=== PATIENT | female | born 1965 | race Caucasian/White ===

== ENCOUNTER → 2022-02-17 | Day surgery (SDC) | payer BC ==
[~2022-02-17] MED LIST: Ketamine 200 MG/20 ML MDV ONE; Lactated Ringers 1,000 ML IV SCH; Midazolam 1 MG/ML 2 ML SDV ONE; Propofol 200 MG/20 ML SDV ONE; fentaNYL 50 MCG/ML SDV ONE
== END ==
LOC: CC.SDS 07:58
PROVIDERS: ATTEND Surgery
DX: Z12.11 Encounter for screening for malignant neoplasm of colon (principal); M79.7 Fibromyalgia; E78.5 Hyperlipidemia, unspecified; I10 Essential (primary) hypertension; E55.9 Vitamin D deficiency, unspecified; E66.01 Morbid (severe) obesity due to excess calories; Z88.5 Allergy status to narcotic agent; Z88.2 Allergy status to sulfonamides; Z79.899 Other long term (current) drug therapy; Z98.890 Other specified postprocedural states; Z68.43 Body mass index [BMI] 50.0-59.9, adult
CPT/HCPCS: J2250; J2704; J3010; J7120

== ENCOUNTER → 2022-06-23 | Day surgery (SDC) | payer BC ==
[~2022-06-23] MED LIST changes: +Acetaminophen/HYDROcodone 325-5 MG Tab PO PRN; +Dexamethasone 4 MG/ML SDV ONE; +Glycopyrrolate 0.2 MG/ML SDV ONE; -Ketamine 200 MG/20 ML MDV ONE; +Lidocaine 2% 20 ML MDV ONE; +Metoprolol Tartrate 5 MG/5 ML SDV ONE; +Morphine 4 MG/ML VIAL IV PRN; +Morphine 4 MG/ML VIAL ONE; +Neostigmine Methylsulfate 10 MG/10 ML MDV ONE; +Ondansetron 4 MG/2 ML SDV ONE; +Rocuronium 50 MG/5 ML Vial ONE; +Sodium Chloride 0.9% 10 ML Syringe FLUSH PRN; +Succinylcholine 200 MG/10 ML MDV ONE; +ceFAZolin 2 GM Vial IVPUSH ONE
[2022-06-23] MEDS: Acetaminophen 325 MG Tab PO PRN ×2 (16:33→20:41)
[2022-06-24] MEDS: Acetaminophen 325 MG Tab PO PRN (04:54)
== END | disposition home or self-care (01) ==
LOC: CC.SDS 08:57
PROVIDERS: ATTEND Surgery
DX: K81.1 Chronic cholecystitis (principal); K76.0 Fatty (change of) liver, not elsewhere classified; I10 Essential (primary) hypertension; E78.5 Hyperlipidemia, unspecified; E55.9 Vitamin D deficiency, unspecified; M79.10 Myalgia, unspecified site; Z88.5 Allergy status to narcotic agent; Z88.2 Allergy status to sulfonamides; Z79.899 Other long term (current) drug therapy; Z98.890 Other specified postprocedural states
CPT/HCPCS: 00790; A9270-GY; J0330; J0690; J1100; J2250; J2270; J2405; J2704; J2710; J3010; J3490; J7030; J7120